=== PATIENT | female | born 1960 | race Caucasian/White ===

== ENCOUNTER → 2019-03-12 12:14 | Outpatient (CLI) | payer OTHER, SELFPAY ==
--- NOTE | ~2019-03-12 | MR_ITS ---
EXAMINATION: MR lumbar spine wo con DATE: 03/12/2019 13:03 INDICATION: Low back pain. TECHNIQUE: Magnetic resonance imaging (MRI) of the lumbar spine was performed without intravenous con trast. Sequences included sagittal T2-weighted FSE, sagittal T2-weighted FS FSE, sagittal T1-weighted FSE, and axial T2-weighted FSE. COMPARISON: Lumbar spine MRI 11/30/2009, chest 2 views 02/03/2018 FINDINGS: There is 14 degrees levoscoliosis of lumbar spine. S1 is a transitional segment. The verteb ral body heights are normal. There is mildly decreased disc height at L3-L4 and moderately decreased disc height at L5-S1. The distal spinal cord signal intensity is normal. The conus medullaris is at L 1-L2. The following disc levels are specifically discussed: L1-L2: There is a right central protrusion. There is moderate bilateral facet joint osteoarthritis. T here is mild right neural foraminal stenosis. There is mild central canal stenosis. L2-L3: The disc does not extend beyond the endplate margin. There is mild right and moderate left fac et joint osteoarthritis. There is no neural foraminal stenosis. There is no central canal stenosis. L3-L4: The disc is bulging. There is moderate bilateral facet joint osteoarthritis. There is mild lef t neural foraminal stenosis. There is mild central canal stenosis. L4-L5: The disc is bulging. There is severe bilateral facet joint osteoarthritis. There is mild bilat eral neural foraminal stenosis. There is mild central canal stenosis. L5-S1: The disc is bulging. There is severe bilateral facet joint osteoarthritis. There is moderate b ilateral neural foraminal stenosis. There is mild central canal stenosis. IMPRESSION: 1. Moderate lower lumbar spondylosis, stable from 11/30/2009. 2. Lumbar levoscoliosis. Reviewed, dictated and finalized at location A. TEACHER
== END ==
PROVIDERS: PCP Internal Medicine; Visit Provider Orthopaedic Surgery
DX: M47.896 Other spondylosis, lumbar region (principal)
CPT/HCPCS: 72148

== ENCOUNTER → 2019-04-06 12:07 | Outpatient (CLI) | payer OTHER, SELFPAY ==
--- NOTE | ~2019-04-06 | XR_ITS ---
EXAMINATION: HAND-SYMONE ARTHRITIS 3+VIEWS DATE: 04/06/2019 12:54 INDICATION: Osteoarthritis with bilateral hand and wrist pain TECHNIQUE: Posteroanterior, lateral, and oblique views of the left and of the right hands as well as a ballcatchers view of both hands were obtained. COMPARISON: None. FINDINGS: Alignment is normal at both hands. No fracture. Relatively symmetric mild polyarticular osteoarthriti s at both hands involving the triscaphe, first carpometacarpal, first metacarpophalangeal and multipl e interphalangeal joints in both hands. No cortical erosions to suggest an inflammatory arthritis. IMPRESSION: 1. Symmetric mild polyarticular osteoarthritis with typical distribution at both hands. Reviewed, dictated and finalized at location A. CULTURAL EXTENSION OFFICER IMPRESSION: 1. Symmetric mild polyarticular osteoarthritis with typical distribution at bot h hands.
--- NOTE | ~2019-04-06 | XR_ITS ---
EXAMINATION: XR sacroiliac joints min 3V DATE: 04/06/2019 12:54 INDICATION: Osteoarthritis with chronic joint pain. Dorsalgia. TECHNIQUE: AP and left and right oblique views of the sacroiliac joints were obtained. COMPARISON: None. FINDINGS: Transitional lumbosacral segment, sacralized on the left and lumbarized on the right. Bilateral sacro iliac osteoarthritis, mild on the left and moderate on the right. No erosions to suggest an inflammat ory sacroiliitis. Severe bilateral lower lumbar facet osteoarthritis. There is also mild bilateral hi p osteoarthritis. Sacral arches are intact. No fracture. IMPRESSION: 1. Mild left and moderate right sacroiliac osteoarthritis. 2. Severe bilateral lower lumbar facet osteoarthritis with transitional lumbosacral segment. Reviewed, dictated and finalized at location A. ING AND PACKING SUPERVISOR IMPRESSION: 1. Mild left and moderate right sacroiliac osteoarthritis. 2. Severe bilateral lower lumbar facet osteoarthritis with transitional lumbosa cral segment.
--- NOTE | ~2019-04-06 | XR_ITS ---
EXAMINATION: XR knee RT min 4V DATE: 04/06/2019 12:53 INDICATION: Unspecified osteoarthritis, unspecified site. TECHNIQUE: 4 views of right knee were obtained. COMPARISON: None. FINDINGS: Bone alignment is normal. No fracture. Joint spaces are well maintained. There is no knee j oint effusion. IMPRESSION: 1. Normal right knee. Reviewed, dictated and finalized at location A. ULTING SERVICES ASSOCIATE IMPRESSION: 1. Normal right knee.
--- NOTE | ~2019-04-06 | XR_ITS ---
EXAMINATION: XR knee LT min 4V DATE: 04/06/2019 12:54 INDICATION: Unspecified osteoarthritis, unspecified site. TECHNIQUE: 4 views of left knee were obtained. COMPARISON: None. FINDINGS: Bone alignment is normal. No fracture. There is mild tricompartmental osteoarthritis. No kn ee joint effusion. IMPRESSION: 1. Mild left knee osteoarthritis. Reviewed, dictated and finalized at location A. ORT DUTY MANAGER
--- NOTE | ~2019-04-06 | XR_ITS ---
EXAMINATION: XR foot LT standing 2V, XR foot RT standing 2V DATE: 04/06/2019 12:53 INDICATION: Osteoarthritis with chronic joint pain in the bilateral feet and ankles. TECHNIQUE: 1. Standing dorsoplantar and lateral views of the left foot were obtained. 2. Standing dorsoplantar and lateral views of the right foot were obtained. COMPARISON: None. FINDINGS: Mild bilateral pes planus. No fracture. Sclerotic bone lesion at the distal right tibial diaphysis wi th ring and arc-like calcific matrix consistent with an enchondroma. No evident endosteal scalloping or other aggressive features. Relatively symmetric minimal to mild polyarticular osteoarthritis at mu ltiple joints in the bilateral feet. No cortical erosions. Bilateral small plantar calcaneal and Achi lles calcaneal spurs. Multiple small dystrophic calcifications in the soft tissues along the anterior aspect of the distal lower legs. IMPRESSION: 1. Mild bilateral pes planus with relatively symmetric pattern of minimal to mild polyarticular osteo arthritis in both feet. 2. Bilateral small Achilles and plantar calcaneal spurs. 3. Likely benign enchondroma in the distal right tibial diaphysis. Reviewed, dictated and finalized at location A. SKIVER IMPRESSION: 1. Mild bilateral pes planus with relatively symmetric pattern of minimal to mi ld polyarticular osteoarthritis in both feet. 2. Bilateral small Achilles and plantar calcaneal spurs. 3. Likely benign enchondroma in the distal right tibial diaphysis.
== END ==
PROVIDERS: PCP Internal Medicine; Visit Provider Internal Medicine
DX: M19.90 Unspecified osteoarthritis, unspecified site (principal); M19.041 Primary osteoarthritis, right hand; M19.042 Primary osteoarthritis, left hand; M19.031 Primary osteoarthritis, right wrist; M19.032 Primary osteoarthritis, left wrist; M53.3 Sacrococcygeal disorders, not elsewhere classified; M77.31 Calcaneal spur, right foot; M77.32 Calcaneal spur, left foot; M17.12 Unilateral primary osteoarthritis, left knee
CPT/HCPCS: 72202; 73130; 73564; 73620

== ENCOUNTER → 2019-10-05 09:36 | Outpatient (CLI) | payer OTHER, SELFPAY ==
--- NOTE | ~2019-10-05 | XR_ITS ---
EXAMINATION: XR lumbar spine 6V w bending DATE: 10/05/2019 10:48 INDICATION: Intervertebral disc disorders with radiculopathy, lumbar spine. TECHNIQUE: 7 views of lumbar spine including flexion and extension views were obtained. COMPARISON: Lumbar spine MRI 03/12/2019 FINDINGS: There is 20 degrees levoscoliosis of thoracolumbar spine. The spine is hypomobile with flex ion and extension. S1 is a transitional segment. Vertebral body heights are normal. There is mildly d ecreased disc height at L3-L4 and L5-S1. There are endplate osteophytes at all levels. There is multi level facet joint osteoarthritis, severe in lower lumbar spine. Surgical clips in the right upper cesar drant are likely from cholecystectomy. IMPRESSION: 1. Mild lumbar spondylosis. 2. Thoracolumbar levoscoliosis. Reviewed, dictated and finalized at location B.
== END ==
PROVIDERS: PCP Internal Medicine; Visit Provider Internal Medicine
DX: M51.16 Intervertebral disc disorders with radiculopathy, lumbar region (principal); M47.896 Other spondylosis, lumbar region
CPT/HCPCS: 72114

== ENCOUNTER 2020-01-13 10:10 | Outpatient (CLI) | payer OTHER, SELFPAY ==
--- NOTE | ~2020-01-13 | NM_ITS ---
NM stress w perf spect multi Procedure: The patient was stressed using Modified Jaxon protocol. Prior to the end of exercise mCi Tc 99m IV administered. Rest imaging performed following administration of 26.19 mCi Tc 99m IV. Suad ges were reformatted into short axis, horizontal and vertical long axis sections for visual and quant itative analysis. Indication: Chest pain Comparison: None Findings: Computer assisted qualitative and quantitative analysis of the immediate and delayed images revealed a small reversible perfusion abnormality of the lateral wall, consistent with impaired Jj nary flow reserve. Normal left ventricular cavity size, wall motion and ejection fraction. Left basia tricular ejection fraction measures 71%. Impression: 1: Small reversible perfusion abnormality lateral wall of the left ventricle, compatible with impaire d coronary flow reserve. 2: Normal left ventricle ejection fraction measuring 71%. Reviewed, dictated and finalized at location B. ECTIONAL THERAPY TEACHER Impression: 1: Small reversible perfusion abnormality lateral wall of the left ventricle, c ompatible with impaired coronary flow reserve. 2: Normal left ventricle ejection fraction measuring 71%.
--- NOTE | 2020-01-13 11:29 | EST_ITS ---
Patient Info Name: Maddie Loepz Age: 59 years : 1960 Gender: Female Ht: 60 in Wt: 185 lbs BSA: 1.93 m2 Exam Date: 01/13/2020 11:44 AM Exam Location: [facility] Stress Patient Status: Outpatient Admit Date: 01/13/2020 Staff Ordering Physician: Devin Blanco DO Attending Provider: HILARIO RAZO Exercise Technologist: Ronnie Monroe RDCS, RT Exercise Physician: Hilario Razo DO Exam Type: CA stress test treadmill w NM Study Info Indications R07.89 - Other chest pain A nuclear stress test was performed. Summary 1. 1. Negative Jaxon exercise stress test for ischemic ST changes by ECG criteria. 2. 2. Poor functional capacity, achieving 4.7 METs of workload. 3. 3. Baseline hypertension with hypertensive response to exercise. 4. 4. Appropriate HR response to exercise. 5. 5. Appropriate HR recovery at 1 minute post exercise. 6. 6. Nuclear scan to follow and will be reported separately. Please correlate with it. 7. 7. Patient informed of the above results. Protocol: Jaxon Stress ECG Details Stage: REST Duration (min): 1 min : 30 sec Speed (mph): 0.0 Grade (%): 0 HR (bpm): 87 SBP (mmHg): 167 DBP (mmHg): 95 METS: --- Stage: REST Duration (min): 21 min : 41 sec Speed (mph): 0.0 Grade (%): 0 HR (bpm): 93 SBP (mmHg): 167 DBP (mmHg): 95 METS: --- Stage: STAGE 1 Duration (min): 1 min : 0 sec Speed (mph): 1.7 Grade (%): 10 HR (bpm): 123 SBP (mmHg): 167 DBP (mmHg): 95 METS: --- Stage: STAGE 1 Duration (min): 2 min : 0 sec Speed (mph): 1.7 Grade (%): 10 HR (bpm): 141 SBP (mmHg): 167 DBP (mmHg): 95 METS: --- Stage: STAGE 1 Duration (min): 3 min : 0 sec Speed (mph): 2.5 Grade (%): 12 HR (bpm): 151 SBP (mmHg): 210 DBP (mmHg): 97 METS: --- Stage: RECOVERY Duration (min): 1 min : 0 sec Speed (mph): 0.0 Grade (%): 0 HR (bpm): 133 SBP (mmHg): 210 DBP (mmHg): 97 METS: --- Stage: RECOVERY Duration (min): 2 min : 0 sec Speed (mph): 0.0 Grade (%): 0 HR (bpm): 123 SBP (mmHg): 210 DBP (mmHg): 97 METS: --- Stage: RECOVERY Duration (min): 3 min : 0 sec Speed (mph): 0.0 Grade (%): 0 HR (bpm): 111 SBP (mmHg): 210 DBP (mmHg): 97 METS: --- Stage: RECOVERY Duration (min): 4 min : 0 sec Speed (mph): 0.0 Grade (%): 0 HR (bpm): 103 SBP (mmHg): 260 DBP (mmHg): 85 METS: --- Stage: RECOVERY Duration (min): 4 min : 43 sec Speed (mph): 0.0 Grade (%): 0 HR (bpm): 106 SBP (mmHg): 207 DBP (mmHg): 87 METS: --- Rest HR: 93 bpm Peak HR: 151 bpm Rest Sys BP: 167 mmHg Peak Sys BP: 260 mmHg Max Pred HR: 160 bpm % Max Pred HR: 94 % Target HR: 136 bpm Max RPP: 39,260 bpm*mmHg Aly Score: -5 BP Response: Patient exhibited a hypertensive response with stress Termination Reason: Reached target heart rate or workload Cardiac Symptoms: Shortness of breath, Back pain radiating t
--- NOTE | 2020-01-20 11:44 | WPDHOLTEREM ---
Holter/Event Monitor Holter/Event Monitor Date of procedure: 01/20/20 Procedure Type: 24 hour holter rmonitor Indications: Chest pain Conclusion: 1. 24 hour holter monitor on 01/20/20. 2. Underlying rhythm is sinus rhythm. HR range 58-129 bpm; average HR 97 bpm. 3. There are 4 premature supraventricular complexes. No supraventricular tachycardia. 4. There are 120 premature ventricular complexes, 1 ventricular couplet and 1 ventricular triplet. No ventricular tachycardia. 5. No sinoatrial or atrioventricular blocks. No significant pauses greater than 2 seconds. 6. No symptoms available for correlation.
== END 2020-01-13 10:11 | disposition home or self-care (01) ==
PROVIDERS: PCP Internal Medicine; Visit Provider Internal Medicine
DX: R07.9 Chest pain, unspecified (principal); R07.89 Other chest pain
CPT/HCPCS: 78452; 93017; 93225; 93226; A9502

== ENCOUNTER → 2020-04-23 01:52 | Outpatient (CLI) | payer OTHER, SELFPAY ==
[2020-04-23 18:54] LABS: SARS-CoV-2 RNA PCR Negative
== END ==
PROVIDERS: PCP Internal Medicine; Visit Provider Internal Medicine Cardiovascular Disease
DX: Z01.812 Encounter for preprocedural laboratory examination (principal); Z20.822 Contact with and (suspected) exposure to COVID-19
CPT/HCPCS: C9803; U0003; U0005

== ENCOUNTER 2020-04-26 01:18 | Day surgery (SDC) | payer OTHER, SELFPAY ==
[2020-04-25 14:34] VITALS: BMI 37.8
[2020-04-26] VITALS (9 sets, daily range): BP systolic 135–168; BP diastolic 61–85; PULSE 68–86; RESP 11–18; TEMP 36.3–36.4; O2SAT 95–98
--- NOTE | 2020-04-26 07:30 | SUR.PREOP ---
Patient arrived to preop room with . Patient denies any chest pain. IV initiated, consent signed, groin prepped. Patient ready for procedure. Will continue to monitor.
[2020-04-26] MEDS: SODIUM CHLORIDE 0.9% IV 500 ML 100 ML IV CONT (08:18)
--- NOTE | 2020-04-26 09:13 | WPDMODSED ---
Moderate Sedation Note-Pt Data Patient Data Allergies Allergy/AdvReac Type Severity Reaction Status Date / Time Iodinated Contrast Media Allergy Mild rash Verified 04/14/20 09:53 Home Medications Medication Instructions Recorded Confirmed Type famotidine 10 mg tablet 10 mg PO DAILY 12/19/18 04/25/20 History lorazepam 0.5 mg tablet 0.5 mg PO DAILY PRN 12/19/18 04/25/20 History ibuprofen 600 mg tablet 600 mg PO TID 04/27/19 04/25/20 History naproxen 500 mg tablet 500 mg PO BID 04/27/19 04/25/20 History aspirin 81 mg tablet,delayed 81 mg PO DAILY 03/17/20 04/25/20 History release metformin 500 mg tablet 500 mg PO .COMPLEX #270 tablet 03/25/20 04/25/20 Rx lisinopril 40 mg tablet 20 mg PO DAILY #90 tablet 04/14/20 04/25/20 Rx metoprolol succinate 50 mg 50 mg PO DAILY #30 tablet 04/14/20 04/25/20 Rx tablet,extended release 24 hr pravastatin 10 mg tablet 10 mg PO DAILY #30 tablet 04/14/20 04/25/20 Rx Current Medications: Active Medications Sodium Chloride (Normal Saline Iv) 500 mls @ 100 mls/hr IV CONT .Q5H ERNESTINE Last Admin: 04/26/20 08:18 Dose: 100 mls/hr Documented by: Sedation/Anesthesia: No previous sedation/anesthesia problems (including family history). [facility] Past Medical History Medical History (Updated 04/14/20 @ 09:54 by Hilario Stoddard DO) Arthritis Bilateral hand pain Diabetes Elevated creatine kinase HTN (hypertension) Inflammatory arthritis Myalgia Plantar fasciitis of left foot Radiculopathy due to lumbar intervertebral disc disorder Vision loss Vitamin D deficiency Surgical History Surgical History History of hand surgery Family History Family History Mother Patient's mother is Father Patient's father is Sibling Heart disease Other Arthritis Cancer Hypertension Social History Social History Smoking status: Former smoker Tobacco type: cigarettes Second hand tobacco smoke exposure: No Smoking end date: 03/11/20 Alcohol intake: never Substance use: never Substance use type: does not use Living arrangements: with family Gender identity (if verbalized by the patient): Female Spiritual care concerns: No Mod Sed Physical Exam Physical Exam Pre Procedural Exam: Normal: Airway Hours since solid foods: 10 Hours since liquid intake: 10 Internal Medicine - PN: Obj Da Vital Signs Vital Signs: Vital Signs - 24 hr 04/26/20 07:58 Temperature 36.3 C L Pulse Rate 82 Respiratory Rate 11 L Blood Pressure 168/78 H Pulse Oximetry 97 Meds/Results Medications: Active Medications Generic Name Dose Route Start Last Admin Trade Name Freq PRN Reason Stop Dose Admin Sodium Chloride 500 mls @ 100 mls/hr 04/26/20 07:15 04/26/20 08:18 Normal Saline Iv IV CONT 100 mls/hr .Q5H ERNESTINE Administration ASA Classification/Sedation ASA Classification/Sedation Risks: Risks, benefits and alternatives explained and patient/family accepted plan for sedation. Patient re-evaluated immediately prior to sedation.
--- NOTE | 2020-04-26 09:21 | WPDHPUPDATE1 ---
History and Physical Update Update Date/Time: 04/26/20 09:21 History and Physical has been reviewed, including an updated exam of the patient. There are NO changes in the patient's condition. Risks, benefits, and alternatives have been discussed and questions answered. Patient agrees to proceed with procedure.
--- NOTE | 2020-04-26 10:17 | WPDCARDPROC ---
Cardiac Cath Procedure Note Date of procedure:: 04/26/20 Performing physician:: Graham Drew MD Procedure Procedure note:: LEFT HEART CATHETERIZATION AND CORONARY ANGIOGRAM REPORT DATE OF PROCEDURE:04/26/2020 INDICATION FOR PROCEDURE: chest pressure, shortness of breath, coronary risk factors, abnormal coronary CT angiogram BRIEF CLINICAL HISTORY: 60-year-old female with hypertension, diabetes mellitus type 2, family history of CAD, obesity. Patient was referred by for coronary angiogram in the setting of chest pressure, shortness of breath, and abnormal coronary CT angiogram. Patient had coronary CT angiogram performed on 04/08/20 at [facility] which reportedly showed moderate severe multifocal three-vessel CAD secondary to calcified atherosclerotic disease; calcium score 2987 ; normal LVEF. Benefits and risks of the procedure were discussed with the patient in depth, and informed consent was obtained prior to the procedure. Risks of the procedure include but are not limited to vascular complications including groin hematoma, retroperitoneal bleed, vessel perforation; periprocedural CO, cardiac arrhythmias, stroke, contrast induced nephropathy, and . After discussing all the benefits, risks and alternatives, patient was willing to proceed with the procedure. PROCEDURES PERFORMED: 1. Left heart catheterization- Selective left and right coronary angiogram; left ventriculogram and hemodynamic assessment 2. Selective right common femoral angiogram and deployment of Angio-Seal hemostatic device 3. Moderate sedation-CPT code 95654 MODERATE SEDATION: Midazolam 2 mg; fentanyl 50 mcg; Start time 0926 , Stop time 1010 ; Total hhxg-ur-[id number] time 44 minutes; Jennifer Monk RN was trained observer for moderate sedation. ACCESS SITE: Right common femoral artery PROCEDURE NOTE: After obtaining informed consent, patient was brought to catheterization lab and prepped and draped in a usual sterile manner. After local anesthesia with lidocaine, right common femoral artery access was taken with micropuncture needle followed by insertion of a 6 Malawian sheath. Selective left and right coronary angiogram was performed using 5 Malawian JL4 and JR4 catheters respectively. Orthogonal views were taken. Next, a 5 [place]ian pigtail catheter was advanced in the LV cavity and was flushed with normal saline. LV pressure measurement was performed. After this, left ventriculogram was performed. The catheter was flushed again, and gradient across the aortic valve was measured on the pullback of the catheter. After performing iFR as described below, selective right common femoral angiogram was performed followed by successful deployment of Angio-Seal vascular closure device. Patient tolerated procedure well without any immediate procedure related complications. FINDINGS: LEFT MAIN CORONARY: the left main coronary is a medium to large caliber, long vessel, no significant focal stenosis seen. The vessel bifurcates into LAD and left circumflex branches. LEFT ANTERIOR DESCENDING ARTERY: The LAD is a medium to large caliber vessel in the proximal segment, tapers distally and reaches the LV apex. There is diffuse calcification, predominantly in the proximal and mid segment. There is mild 20-40% diffuse stenosis in the proximal and mid segment. The diagonal branch is a small-caliber vessel with moderate stenosis at the ostium. LEFT CIRCUMFLEX ARTERY: The left circumflex artery is a medium caliber vessel with diffuse calcification. It gives rise to small-sized OM 1 branch and medium-sized OM2 branch . There is eccentric, about 30-50% stenosis in the mid segment. RIGHT CORONARY ARTERY: The right coronary artery is a large size, dominant vessel with diffuse calcific disease. There is mild eccentric about 30% stenosis in the proximal-mid segment. Calcific, sequential, eccentric about 50-60% stenosis is seen in the upper part of the distal segment.
--- NOTE | 2020-04-26 14:23 | SUR.PHASEII ---
REVIEWED ALL DISCHARGE INSTRUCTIONS W/ PT. QUESTIONS ANSWERED. VOICED UNDERSTANDING OF ALL. DISCHARGED HOME, OUT VIA WC TO 'S WAITING CAR W/ ALL PERSONAL BELONGINGS AND DISCHARGE PACKET. VOICES NO C/O. NO DISTRESS NOTED.
== END 2020-04-26 14:23 | disposition home or self-care (01) ==
PROVIDERS: PCP Internal Medicine; Visit Provider Internal Medicine Cardiovascular Disease
PROC: 4A023N7 Measurement of Cardiac Sampling and Pressure, Left Heart, Percutaneous Approach (ICD-10-PCS; CPT 93452; principal; 2020-04-26 08:45)
PROC: 4A033BC Measurement of Arterial Pressure, Coronary, Percutaneous Approach (ICD-10-PCS; CPT 93571; 2020-04-26 08:45)
DX: I25.10 Atherosclerotic heart disease of native coronary artery without angina pectoris (principal); R93.1 Abnormal findings on diagnostic imaging of heart and coronary circulation; R07.89 Other chest pain; R06.02 Shortness of breath; I10 Essential (primary) hypertension; E11.9 Type 2 diabetes mellitus without complications; Z82.49 Family history of ischemic heart disease and other diseases of the circulatory system; E66.9 Obesity, unspecified; Z68.37 Body mass index [BMI] 37.0-37.9, adult; Z79.84 Long term (current) use of oral hypoglycemic drugs; Z87.891 Personal history of nicotine dependence
CPT/HCPCS: 93458; 93571; C1760; C1769; C1887; C1894; C9803; G0269; J0461; J0583; J1644; J2250; J3010; J7040; U0003; U0005

== ENCOUNTER 2020-05-09 08:32 | Outpatient (CLI) | payer OTHER, SELFPAY ==
--- NOTE | 2020-05-09 08:50 | ECHO_ITS ---
Patient Info Name: Maddie Lopez Age: 60 years : 1960 Gender: Female Ht: 60 in Wt: 195 lbs BSA: 1.98 m2 HR: 83 bpm BP: 159 / 93 mmHg Technical Quality: Good Exam Date: 05/09/2020 8:58 AM Exam Location: [facility] Patient Status: Outpatient Admit Date: 05/09/2020 Staff Ordering Physician: Hilario Stoddard DO Executive Chef: Cassy De Los Santos RDCS Attending Provider: Hilario Stoddard DO Referring Physician: Richi ISAAC; Exam Type: CA echo doppler color flow Study Info Indications - ATHEROSCLEROTIC HEART DISEASE Complete two-dimensional, color flow and Doppler transthoracic echocardiogram is performed. Summary 1. Complete two-dimensional, color flow and Doppler transthoracic echocardiogram is performed. 2. Left ventricular chamber dimension is normal. 3. Ventricular septum is sigmoid shaped. No LVOT obstruction. 4. Left ventricular systolic function is normal, estimated at 60-65%. 5. The left ventricular diastolic function is grade I diastolic dysfunction. 6. E/e' 13 is mildly elevated. 7. Left atrial chamber dimension is mildly enlarged. 8. There is mild aortic valve sclerosis. 9. The mitral valve has moderately calcified annulus. 10. No pulmonary hypertension, estimated pulmonary arterial systolic pressure is 29 mmHg. 11. There is mild pulmonic regurgitation. Left Ventricle Ventricular septum is sigmoid shaped. No LVOT obstruction. E/e' 13 is mildly elevated. Left ventricular chamber dimension is normal. Left ventricular systolic function is normal, estimated at 60-65%. The left ventricular diastolic function is grade I diastolic dysfunction. Right Ventricle Right ventricular chamber dimension is normal. Right ventricular systolic function is normal. Left Atria Left atrial chamber dimension is mildly enlarged. Right Atria Right atrial chamber dimension is normal. Aortic Valve The aortic valve is trileaflet. There is mild aortic valve sclerosis. There is no aortic valve stenosis. There is no aortic valve regurgitation. Pulmonic Valve There is mild pulmonic regurgitation. Mitral Valve The mitral valve has moderately calcified annulus. There is no mitral valve stenosis. There is no mitral valve regurgitation. Tricuspid Valve There is no tricuspid valve regurgitation. No pulmonary hypertension, estimated pulmonary arterial systolic pressure is 29 mmHg. Pericardium/Pleural There is no pericardial effusion. Inferior Vena Cava Normal inferior vena cava with >50% collapse upon inspiration consistent with normal right atrial pressure, 5 mmHg. Aorta The aortic root size at the sinus of Valsalva is normal. Left Ventricular Outflow Tract Name Value Normal LVOT 2D LVOT Diameter 2.0 cm LVOT Doppler LVOT Peak Gradient 3 mmHg LVOT Mean Gradient 2 mmHg LVOT VTI 21 cm LVOT VTI/AV VTI Ratio 0.8 LVOT Stroke Volume 65 ml LVOT CO 12.8 l/min LVOT CI 6.5
== END 2020-05-09 08:33 | disposition home or self-care (01) ==
PROVIDERS: PCP Internal Medicine; Visit Provider Internal Medicine Cardiovascular Disease
DX: I25.10 Atherosclerotic heart disease of native coronary artery without angina pectoris (principal); I08.3 Combined rheumatic disorders of mitral, aortic and tricuspid valves
CPT/HCPCS: 93306

== ENCOUNTER 2022-02-22 11:16 | Emergency (ER) | payer OTHER, SELFPAY ==
--- NOTE | ~2022-02-22 | XR_ITS ---
EXAMINATION: XR chest 2V DATE: 02/22/2022 11:44 INDICATION: Nonproductive cough TECHNIQUE: PA and lateral views of the chest are obtained. COMPARISON: 02/03/2018 FINDINGS: There are airspace opacities of the mid and lower lung zones. No pleural effusion or pneumo thorax. The cardiomediastinal silhouette is normal. There is moderate thoracic spondylosis. IMPRESSION: 1. Airspace opacities of the mid and lower lung zones, consistent with atelectasis versus pneumonia. Reviewed, dictated and finalized at location L. N MAKER IMPRESSION: 1. Airspace opacities of the mid and lower lung zones, consistent with atelecta sis versus pneumonia.
--- NOTE | 2022-02-22 11:17 | ED.URI ---
HPI - URI/Sore Throat General Chief Complaint: Upper Respiratory Infection Stated Complaint: Headache,Cough,Shortness of Breath Time Seen by Provider: 02/22/22 11:17 Source: patient Mode of arrival: ambulatory Limitations: no limitations History of Present Illness HPI Narrative: Maddie is a 62-year-old female patient presenting to the clinic today with complaints of headache, nonproductive cough, sweats, chills, and shortness of breath x4 days. She reports she took at home COVID test 2 days ago and was negative. She denies any known exposure to anybody with COVID, flu, or strep. Is over a 40 year 1/4 pack smoker. She denies any history of asthma or COPD. She rates her shortness of breath an 8/10 currently. MD elicited complaint: sore throat and nasal congestion Related Data Home Medications Medication Instructions Recorded Confirmed aspirin 81 mg tablet,delayed 81 mg PO DAILY 07/21/21 02/22/22 release (Adult Low Dose Aspirin) biotin 1,000 mcg chewable tablet 1,000 mcg PO DAILY 07/21/21 02/22/22 cholecalciferol (vitamin D3) 25 25 mcg PO DAILY 07/21/21 02/22/22 mcg (1,000 unit) capsule omega 1-gxo-yqz-fish oil 1,000 mg 1 cap PO DAILY 07/21/21 02/22/22 (120 mg-180 mg) capsule (Fish Oil) omeprazole 20 mg capsule,delayed 20 mg PO DAILY 10/18/21 02/22/22 release Allergies Allergy/AdvReac Type Severity Reaction Status Date / Time Iodinated Contrast Media Allergy Mild rash Verified 02/22/22 11:32 Review of Systems Review of Systems: Pertinent positives per HPI. Patient denies any fever, chills, rash, visual changes, dizziness, sore throat, chest pain, palpitations, nausea, vomiting, diarrhea, constipation, abdominal pain, or any urinary issues. [facility] Past Medical History Medical History Arthritis Bilateral hand pain Diabetes Elevated creatine kinase HTN (hypertension) Inflammatory arthritis Myalgia Plantar fasciitis of left foot Radiculopathy due to lumbar intervertebral disc disorder Vision loss Vitamin D deficiency Surgical History Surgical History History of hand surgery Family History Family History Mother Patient's mother is Father Patient's father is Sibling Heart disease Other Arthritis Cancer Hypertension Social History Social History Smoking packs per day: 0.25 Smoking cigarettes per day: 5.0 Years smoked: 42 Smoking pack-years: 10.50 Smoking status: Current every day smoker Tobacco type: cigarettes Second hand tobacco smoke exposure: No Alcohol intake: never Substance use: never Substance use type: does not use Gender identity (if verbalized by the patient): Female Spiritual care concerns: No Comments At the time of my signature, I reviewed and agree with the nursing past medical, surgical, social, and family history. There is no relevant family history pertinent to the patient complaint. Exam Narrative: General: Well-developed, obese, in no apparent distress Head: Normocephalic, atraumatic Eyes: Pupils equally round and reactive to light bilaterally, EOM intact, sclera and conjunctive clear, no discharge, lids normal Ears: TMs intact and clear, ear canals clear, no drainage, grossly hearing normal. Nose: Nares patent, clear nasal discharge, no inflammation, no sinus tenderness. Mouth: Oral pharynx without lesions or masses, good dentition, MMM. Oropharynx red, postnasal drip Neck: Supple, trachea midline, no enlargement of anterior or posterior cervical nodes, no thyroid masses or goiter palpable. Cardio: Regular rate and rhythm, s1 and s2 normal, no murmur appreciated. Resp: Lungs sounds diminished, no rhonchi, rales, wheezing or rubs Course Course Bria
[2022-02-22 11:28] VITALS: BP 129/68; PULSE 80; RESP 18; TEMP 36.9; O2SAT 96
[2022-02-22] MEDS: ALBUTEROL SULFATE NEB 2.5 MG/3 ML INH INHALATION (11:47)
[2022-02-22] MEDS: IPRATROPIUM BR 0.02% INH SOLN 0.5 MG/2.5 ML VIAL INHALATION (11:48)
[2022-02-22 11:59] VITALS: O2SAT 96
[2022-02-22 12:24] VITALS: PULSE 90; O2SAT 93
== END 2022-02-22 12:12 | disposition home or self-care (01) ==
PROVIDERS: Emergency Provider Nurse Practitioner Family; PCP Internal Medicine
DX: J10.00 Influenza due to other identified influenza virus with unspecified type of pneumonia (principal); Z20.822 Contact with and (suspected) exposure to COVID-19; F17.210 Nicotine dependence, cigarettes, uncomplicated; E11.9 Type 2 diabetes mellitus without complications; I10 Essential (primary) hypertension; M13.80 Other specified arthritis, unspecified site; E55.9 Vitamin D deficiency, unspecified
CPT/HCPCS: 71046; 87426; 87804; 94640; 99213; C9803; G0463

== ENCOUNTER 2022-06-11 09:53 | Outpatient (CLI) | payer OTHER, SELFPAY ==
--- NOTE | 2022-06-11 10:00 | ECG_ITS ---
Measurements Intervals [place] Rate: 85 P: 31 PA: 148 QRS: -1 QRSD: 108 T: 94 QT: 350 QTc: 417 Interpretive Statements SINUS RHYTHM CONSIDER INFERIOR INFARCT, AGE INDETERMINATE BORDERLINE ST-T WAVE ABNORMALITY- HIGH LATERAL LEADS BASELINE ARTIFACT- I, II, III, AVF, V1 ABNORMAL ECG NO PREVIOUS ECG AVAILABLE FOR COMPARISON Electronically Signed On 06-11-2022 10:33:24 CDT by iHlario Stoddard D.O.
== END 2022-06-11 09:54 | disposition home or self-care (01) ==
PROVIDERS: PCP Internal Medicine; Visit Provider Orthopaedic Surgery
DX: E78.5 Hyperlipidemia, unspecified (principal); Z01.818 Encounter for other preprocedural examination; R94.31 Abnormal electrocardiogram [ECG] [EKG]
CPT/HCPCS: 93005

== ENCOUNTER 2022-06-14 01:36 | Day surgery (SDC) | payer OTHER, SELFPAY ==
[2022-06-06 15:08] VITALS: BMI 33.2
--- NOTE | 2022-06-06 15:23 | PC.NURSE ---
Report to the Outpatient Waiting Room, entrance under the green pavilion located off [facility], at time 9:30 on date 06/14/22. Planned Procedure Time: 11:30. Time changes happen often and if your time is changed the preop area will call you the afternoon before. - You and your visitor will be asked to self-screen and do not enter if you have any COVID symptoms. - A mask is optional within the hospital at this time. Patients may have clear liquids (water, carbonated beverages, clear teas, apple juice) until 3 hours prior to surgery (8:30) with a maximum of 20 ounces. - No food from midnight until time of surgery Take the following medications with a SIP of water the morning of surgery: METOPROLOL, INHALER IF NEEDED DO NOT STOP ANY OF YOUR OTHER PRESCRIPTION MEDICATIONS PRIOR TO SURGERY?EXCEPT THE FOLLOWING Medications to discontinue per physician: VITAMINS/SUPPLEMENTS Date to take last dose: 06/10/22 Please no make-up, nail cape verdean, hairspray, perfume, deodorant, or body powder the day of surgery. No jewelry (including any body piercings) or valuables the day of surgery, leave them at home. Please take a shower or bath the night before, or the morning of, surgery with an antibacterial soap. Wear comfortable, loose fitting clothing. - Jewelry must be removed prior to entering the operating room. Rings and piercings that are not removed may be cut off. - The hospital will not accept responsibility for valuables. - Please leave all valuables, including medications, at home the day of surgery. If you are going home after surgery, a licensed city bus driver must drive you home. - NO public transportation without another adult if you receive anesthesia. - We recommend that an adult stay with you for 24 hours following discharge. - We also recommend that you do not drive, make important decision, drink alcoholic beverages, or take any drugs that were not prescribed by your health care provider for at least 24 hours after your discharge time. Follow any additional instructions given to you from your surgeon. If you or anyone in your household have experienced Covid symptoms in the past week, please notify your surgeon or the nurse liaison at the phone number below for possible testing. Telephone instructions given to PT - DAVE MACK and asked if any additional questions and then verbalized understanding. Patient advised to call surgeon office or pre surgery nurse liaison [phone] if any additional questions.
[2022-06-14] VITALS (9 sets, daily range): BP systolic 104–151; BP diastolic 57–66; PULSE 68–87; RESP 14–18; TEMP 36.1; O2SAT 92–100
--- NOTE | ~2022-06-14 | XR_ITS ---
EXAMINATION: XR surgery orthopedic DATE: 06/14/2022 09:57 INDICATION: Left fourth toe corn removal TECHNIQUE: Single fluoroscopic image of the left forefoot was obtained during procedure performed by Dr. Mckee. Radiologist was not present for the imaging or procedure. The amount of fluoroscopy time used during this procedure was 0.1 minutes. COMPARISON: None. FINDINGS: Metallic probe projects over the middle phalanx of the right fourth toe. Bone alignment is normal. No fractures. IMPRESSION: 1. Fluoroscopy utilized during orthopedic procedure with metallic probe marking the fourth toe middle phalanx. See procedure note for further detail. Reviewed, dictated and finalized at location L.
--- NOTE | 2022-06-14 07:11 | WPDHPUPDATE1 ---
History and Physical Update Update Date/Time: 06/14/22 07:11 History and Physical has been reviewed, including an updated exam of the patient. There are NO changes in the patient's condition. Risks, benefits, and alternatives have been discussed and questions answered. Patient agrees to proceed with procedure.
--- NOTE | 2022-06-14 09:05 | WPDANESEPPF ---
Anes - Initial Pre Proc Eval Procedure: Operation Date: 06/14/22 10:00 Proposed Procedures p Removal of Flint Left Fourth Toe - Tirso Mckee MD Date/Time: 06/14/22 09:05 Surgeon: Tirso Mckee MD Pre Op Diagnosis: left 4th toe corn Patient Data Age: 62 Gender: F Height: 1.52 m Weight: 77.11 kg Allergies Allergy/AdvReac Type Severity Reaction Status Date / Time Iodinated Contrast Media Allergy Mild rash Verified 06/06/22 15:08 Home Medications Medication Instructions Recorded Confirmed Type aspirin 81 mg tablet,delayed 81 mg PO DAILY 07/21/21 06/06/22 History release (Adult Low Dose Aspirin) biotin 1,000 mcg chewable tablet 1,000 mcg PO DAILY 07/21/21 06/06/22 History cholecalciferol (vitamin D3) 25 25 mcg PO DAILY 07/21/21 06/06/22 History mcg (1,000 unit) capsule omega 7-rci-ikg-fish oil 1,000 mg 1 cap PO DAILY 07/21/21 06/06/22 History (120 mg-180 mg) capsule (Fish Oil) lisinopril 40 mg tablet 40 mg PO DAILY #90 tabs 10/02/21 06/06/22 Rx omeprazole 20 mg capsule,delayed 20 mg PO DAILY 10/18/21 06/06/22 History release albuterol sulfate 90 mcg/actuation 2 puff inhalation Q4-6H PRN 02/22/22 06/06/22 Rx aerosol inhaler shortness of breath or wheezing 30 days #8.5 grams metoprolol succinate 50 mg See Rx Instructions .Route 03/26/22 06/06/22 Rx tablet,extended release 24 hr .COMPLEX #30 tabs pravastatin 10 mg tablet See Rx Instructions .Route 03/26/22 06/06/22 Rx .COMPLEX #30 tabs Patient hx anesthesia problems: none Family hx anesthesia problems: none Results Review: All pre-operative results and documents have been reviewed as part of the pre-operative evaluation. [facility] Past Medical History Medical History Arthritis Bilateral hand pain [place] of toe Diabetes Elevated creatine kinase HTN (hypertension) Inflammatory arthritis Myalgia Pes planus of both feet Plantar fasciitis of left foot Radiculopathy due to lumbar intervertebral disc disorder Vision loss Vitamin D deficiency Surgical History Surgical History History of hand surgery Family History Family History Mother Patient's mother is Father Patient's father is Sibling Heart disease Other Arthritis Cancer Hypertension Social History Social History Smoking packs per day: 1 Smoking cigarettes per day: 20.0 Years smoked: 40 Smoking pack-years: 40.00 Smoking status: Current some day smoker Tobacco type: cigarettes Second hand tobacco smoke exposure: No Smoking end date: 02/11/22 Alcohol intake: never Substance use: never Substance use type: does not use Lack of Transportation: No Lack of Food: Never True Current Housing: I Have Housing Concerned About Future Housing: No Difficulty Paying Gas/Electric Bills: No Difficulty Paying for Meds: No Currently Unemployed: No Education: High School Diploma/GED Difficulty w/ Childcare or Family Care: No Living arrangements: with family Gender identity (if verbalized by the patient): Female Spiritual care concerns: No Anes - Eval Final PreProcedure Day of Procedure 06/14/22 09:05 Patient weight: obese Heart: regular rate and rhythm Lungs: decreased breath sounds Airway: Mallampati scale class II Neurological: alert and oriented Last oral intake: >/= 8 hours ASA classification: III Emergent: no Anesthetic plan: proceed Anesthesia type and monitoring: general LMA and standard monitoring Results Review: All pre-operative results and documents have been reviewed as part of the pre-operative evaluation. Informed Consent: The patient's anesthetic plan and its attendant risks and benefits were discussed with the patient/family
[2022-06-14] MEDS: KETOROLAC 15 MG/ML VIAL (*BKC) IV PUSH (09:15)
[2022-06-14] MEDS: LACTATED RINGERS 1,000 ML 30 ML IV CONT (09:15)
[2022-06-14] MEDS: ACETAMINOPHEN 500 MG TABLET 1000 MG PO (09:15)
[2022-06-14] MEDS: ceFAZolin 2 GM/D5W 50 ML 2 GM/50 ML BAG IVPB (09:26)
[2022-06-14] MEDS: BUPivacaine HCL 0.5% PF 30 ML VIAL 20 ML INFILTRATE (09:55)
--- NOTE | 2022-06-14 10:18 | P.OP_ITS ---
Procedure Note - Detailed Date of Procedure 06/14/22 Pre-op Diagnosis left 4th toe Phalangeal exostosis Post-op Diagnosis Same Procedure Performed excision of exostosis left 4th toe middle and proximal phalanx. Surgeon Tirso Mckee MD Clinical Systems Analyst 1St assistant superintendent Anesthesia General Indications 62-year-old woman with lateral exostosis of the 4th toe middle and proximal phalanx creating a hard callus and pre ulcerative skin condition over the lateral 4th toe. Difficulty with shoe wear secondary to pressure. Presents for operative treatment. Description of Procedure Patient identified in the preoperative holding. Informed consent given. Operative extremity marked. Patient received intravenous antibiotics. Patient brought to the operating room where underwent general anesthetic by anesthesia team. Positioned supine on operating room table. Time-out performed confirming the patient, site of the surgery and the plan. Left foot prepped draped usual sterile surgical fashion using a ChloraPrep skin solution. Foot exsanguinated and calf tourniquet inflated to 225 mmHg. Local anesthetic with 0.5% Marcaine. Dorsal longitudinal incision made over the 4th toe dorsal to the callus. Dissection carried down and the extensor tendon retracted medially to allow exposure of the lateral aspect of the middle and proximal phalanx. Capsulotomy performed in line with the skin incision. Sagittal saw then used to resect the lateral condyle and exostosis from the middle and proximal phalanx. Image intensification confirmed resection level. Bone and smoothed with a rongeur. Wound irrigated. Subcutaneous tissue closed with 3-0 Monocryl interrupted suture and skin repaired with 4-0 nylon interrupted suture. Tourniquet released in good capillary refill noted in the toe. Sterile dressing applied. The patient was then woken from anesthesia, extubated and taken to the recovery room in stable condition. All sponge, needle, instrument counts were correct at the end of the case. Estimated Blood Loss 5 Tourniquet Time 20 Drains No Packing No Pathology None sent Complications None Condition Stable Disposition PACU [facility] Billing Surgery - Charge Forward: Surgery Billing ([id number])
[2022-06-14 10:27] LABS: Glucose Point of Care 156 mg/dl (65-105)
[2022-06-14 12:26] LABS: Glucose Point of Care 185 mg/dl (65-105)
== END 2022-06-14 11:57 | disposition home or self-care (01) ==
PROVIDERS: PCP Internal Medicine; Visit Provider Orthopaedic Surgery
PROC: (CPT 28108; principal; 2022-06-14 10:00)
DX: M25.775 Osteophyte, left foot (principal); L84 Corns and callosities; I10 Essential (primary) hypertension; E55.9 Vitamin D deficiency, unspecified; E11.9 Type 2 diabetes mellitus without complications; Z79.82 Long term (current) use of aspirin; Z79.51 Long term (current) use of inhaled steroids; F17.210 Nicotine dependence, cigarettes, uncomplicated; E66.9 Obesity, unspecified; Z68.33 Body mass index [BMI] 33.0-33.9, adult
CPT/HCPCS: 28108; 82948; 93005; 99199; A9270; J0690; J1100; J1885; J2250; J2370; J2405; J2704; J3010; J7120

== ENCOUNTER 2022-11-07 10:13 | Outpatient (CLI) | payer OTHER, SELFPAY ==
--- NOTE | ~2022-11-07 | CT_ITS ---
EXAMINATION: CT lung screening DATE: 11/07/2022 10:38 INDICATION: Smoker. TECHNIQUE: Computed tomography (CT) of the chest was performed without intravenous contrast. The dose -length product was 118.19 mGy-cm. Automated exposure control and iterative reconstruction technique were employed. COMPARISON: Chest x-ray dated 02/22/2022 FINDINGS: No thoracic lymphadenopathy. There is atherosclerosis of the aorta and coronary arteries. N o significant pleural or pericardial effusion. There are cholecystectomy clips. There is atelectasis/ scarring in the mid lungs bilaterally. Elevated right diaphragm. There are a few small scattered grou ndglass nodules measuring 3 mm or less in both lungs. There is dependent atelectasis. Moderate thorac ic spondylosis. Dextroscoliosis. IMPRESSION: 1. Lung-RADS category 2: Benign appearance or behavior. Continue annual screening with noncontrast lo w-dose chest CT in 12 months. Reviewed, dictated and finalized at location B. IMPRESSION: 1. Lung-RADS category 2: Benign appearance or behavior. Continue annual screeni ng with noncontrast low-dose chest CT in 12 months.
== END 2022-11-07 10:14 | disposition home or self-care (01) ==
PROVIDERS: PCP Internal Medicine; Visit Provider Internal Medicine
DX: Z12.2 Encounter for screening for malignant neoplasm of respiratory organs (principal); F17.210 Nicotine dependence, cigarettes, uncomplicated
CPT/HCPCS: 71271

== ENCOUNTER 2023-06-26 08:26 | Outpatient (CLI) | payer OTHER, SELFPAY ==
--- NOTE | ~2023-06-26 | NM_ITS ---
EXAMINATION: NM rico stress w perfusion DATE: 06/26/2023 10:41 INDICATION: Chest pain TECHNIQUE: Rest images were obtained following intravenous administration of 10.3 mCi Tc99m tetrofosm in (Myoview). The patient was infused intravenously with Lexiscan (Regadenoson). Then, 32.7 mCi Tc99m tetrofosmin (Myoview) was administered intravenously, and stress images were obtained. Data was sherlyn nstructed into short axis and horizontal and vertical long axis SPECT images. Gated SPECT images were also obtained. COMPARISON: None. FINDINGS: There is no definite reversible or fixed perfusion abnormality to suggest ischemia or infar ction. There is normal left ventricular chamber size, wall motion and ejection fraction. Left ventr icular ejection fraction measures 63%. IMPRESSION: 1. Normal myocardial perfusion at rest and during stress. 2. Left ventricular ejection fraction measuring 63%. Reviewed, dictated and finalized at location A.
--- NOTE | 2023-06-26 09:07 | EST_ITS ---
Patient Info Name: Maddie Lopez Age: 63 years : 1960 Gender: Female Ht: 60 in Wt: 125 lbs BSA: 1.56 m2 HR: 84 bpm BP: 139 / 70 mmHg Heart Rhythm: Sinus Rhythm Exam Date: 06/26/2023 9:33 AM Exam Location: Echo Lab Patient Status: Outpatient Admit Date: 06/26/2023 Staff Ordering Physician: Hilario Stoddard DO Attending Provider: Hilario Stoddard DO Exercise Technologist: Tala Bowden CT Exercise Physician: Hilario Stoddard DO Exam Type: CA stress rico w NM Study Info Indications Z01.818 - Encounter for other preprocedural examination A regadenoson stress test was performed. Summary 1. 1. Negative lexiscan stress test for ischemic ST changes by ECG criteria. 2. 2. Stable hemodynamics throughout the test. 3. 3. Nuclear scan to follow and will be reported separately. Please correlate with it. 4. 4. Patient informed of the above results. Protocol: Lexiscan Stress ECG Details Stage: REST Duration (min): 0 min : 53 sec HR (bpm): 84 SBP (mmHg): 139 DBP (mmHg): 70 Stage: REST Duration (min): 1 min : 5 sec HR (bpm): 86 SBP (mmHg): 139 DBP (mmHg): 70 Stage: STAGE 1 Duration (min): 1 min : 0 sec HR (bpm): 101 SBP (mmHg): 134 DBP (mmHg): 67 Stage: RECOVERY Duration (min): 1 min : 0 sec HR (bpm): 100 SBP (mmHg): 134 DBP (mmHg): 67 Stage: RECOVERY Duration (min): 2 min : 0 sec HR (bpm): 106 SBP (mmHg): 134 DBP (mmHg): 67 Stage: RECOVERY Duration (min): 3 min : 0 sec HR (bpm): 99 SBP (mmHg): 114 DBP (mmHg): 58 Stage: RECOVERY Duration (min): 3 min : 17 sec HR (bpm): 101 SBP (mmHg): 114 DBP (mmHg): 58 Rest HR: 86 bpm Peak HR: 106 bpm Rest Sys BP: 139 mmHg Peak Sys BP: 134 mmHg Max Pred HR: 156 bpm % Max Pred HR: 68 % Target HR: 133 bpm Max RPP: 14,204 bpm*mmHg Termination Reason: Completed protocol Cardiac Symptoms: Shortness of breath Total Time: 1 min : 0 sec Rest Craig BP: 70 mmHg Peak Craig BP: 67 mmHg Total Dose: 0.4 mg Resting ECG Sinus rhythm. Stress ECG No ST changes. Arrhythmias None. Report Signatures
== END 2023-06-26 08:27 | disposition home or self-care (01) ==
PROVIDERS: PCP Internal Medicine; Visit Provider Internal Medicine Cardiovascular Disease
DX: R07.89 Other chest pain (principal); Z01.810 Encounter for preprocedural cardiovascular examination
CPT/HCPCS: 78452; 93017; A9502; J2785

== ENCOUNTER 2023-10-11 08:18 | Outpatient (CLI) | payer OTHER, SELFPAY ==
--- NOTE | ~2023-10-11 | XR_ITS ---
EXAMINATION: XR UGI w barium swallow DATE: 10/11/2023 09:36 INDICATION: Epigastric pain TECHNIQUE: The patient drank thick barium, gas-producing crystals, and thin barium. Fluoroscopic spot radiographs of the hypopharynx, esophagus, stomach and proximal small bowel were obtained. Fluorosco py exposure time was 2.7 minutes. A total of 869 fluoroscopic images were recorded. Total DAP was 11. 231 Gycm^2 COMPARISON: None. FINDINGS: The pharynx is symmetric and without evidence of mass lesion or mucosal irregularity. The esophagus i s normal without mass or stricture. Esophageal motility is normal. There is no hiatal hernia. There w as no gastroesophageal reflux with provocative maneuvers. Duodenal diverticulum arising from the thir d portions of the duodenum. The stomach and proximal small bowel are otherwise normal. IMPRESSION: 1. Duodenal diverticulum. Otherwise normal esophagram and upper GI study. Reviewed, dictated and finalized at location A.
--- NOTE | ~2023-10-11 | US_ITS ---
EXAMINATION: US abdomen limited DATE: 10/11/2023 09:18 INDICATION: Other specified abnormal findings of blood chemistry. Nausea and right upper quadrant abd ominal pain. TECHNIQUE: Multiple grayscale and Doppler ultrasound images of the abdomen were obtained. COMPARISON: None FINDINGS: The region of the pancreas is obscured by shadowing bowel gas. The proximal abdominal aorta and infer ior vena cava are also partially obscured but appear normal with abdominal aorta measuring approximat shavonne 2.1 cm in maximal diameter. Liver has normal echogenicity and contour, with a smooth surface. No liver lesion identified. Mild central intrahepatic biliary ductal dilation. Portal venous flow was se en in the hepatopetal, normal direction and has normal Doppler waveform. Status post cholecystectomy. Common bile duct measures 6 mm in maximal diameter which is within normal limits. IMPRESSION: 1. Mild central intrahepatic ductal or ductal dilation with normal caliber common bile duct. This cou ld be secondary to prior cholecystectomy. If there is clinical concern for biliary obstruction could consider MRCP for further evaluation.. Reviewed, dictated and finalized at location A. IMPRESSION: 1. Mild central intrahepatic ductal or ductal dilation with normal caliber comm on bile duct. This could be secondary to prior cholecystectomy. If there is cli nical concern for biliary obstruction could consider MRCP for further evaluatio michelle
== END 2023-10-11 08:19 | disposition home or self-care (01) ==
PROVIDERS: PCP Internal Medicine; Visit Provider Internal Medicine
DX: R10.13 Epigastric pain (principal); R79.89 Other specified abnormal findings of blood chemistry; K57.10 Diverticulosis of small intestine without perforation or abscess without bleeding
CPT/HCPCS: 74240; 76705

== ENCOUNTER 2023-11-11 17:40 | Emergency (ER) | payer OTHER, SELFPAY ==
--- NOTE | ~2023-11-11 | CT_ITS ---
CT of the Abdomen and Pelvis: Indication: Hepatobiliary obstruction Technique: 2.5 mm axial scans were obtained through the abdomen and pelvis following intravenous adm inistration of 100 cc of Omnipaque 350. Dose reduction technique was used on this scan by utilizing a utomated exposure control and iterative reconstruction technique. The dose-length product (DLP) was 2 83.52 mGy-cm. Findings: Scans through the lung bases demonstrate probable mild bibasilar chronic interstitial reddy ge and mild bronchiolectasis. There is a 2.6 x 2.1 cm somewhat ill-defined hypodense mass at the pancreatic head, highly suspicious for pancreatic adenocarcinoma. There is associated marked dilatation of the main pancreatic duct ups tream from the lesion. There is also marked intrahepatic and extrahepatic biliary dilatation. Cholecy stectomy clips present. There is abrupt cut off of the main pancreatic duct and common bile duct at t he level of the mass. The spleen and kidneys are within normal limits. Probable small bilateral adrenal nodules, stable sin ce 11/07/2022. There are atherosclerotic calcifications of the aorta. No lymphadenopathy. No bowel obstruction or bowel wall thickening. There is no evidence to suggest acute appendicitis. Images through the pelvis were performed. Urinary bladder unremarkable. No pelvic mass seen. No ascit es. Impression: 2.6 x 2.1 cm pancreatic head mass is highly suspicious for pancreatic carcinoma. There is associated obstruction of both the main pancreatic duct and distal common bile duct, with marked intrahepatic an d extrahepatic biliary dilatation and upstream main pancreatic ductal dilatation. Small bilateral adrenal nodules are stable since 11/07/2022. As these appear to predate the pancreatic lesion, they are likely benign. Reviewed, dictated and finalized at location M. Impression: 2.6 x 2.1 cm pancreatic head mass is highly suspicious for pancreatic carcinoma . There is associated obstruction of both the main pancreatic duct and distal c ommon bile duct, with marked intrahepatic and extrahepatic biliary dilatation a nd upstream main pancreatic ductal dilatation. Small bilateral adrenal nodules are stable since 11/07/2022. As these appear to predate the pancreatic lesion, they are likely benign.
[2023-11-11 18:12] VITALS: BP 131/76; PULSE 87; RESP 14; TEMP 36.7; O2SAT 98
--- NOTE | 2023-11-11 18:39 | ED.ABDPAIN ---
HPI - Abdominal Pain General Chief Complaint: Abdominal Pain <Kaylin Osborne PA-C - Last Filed: 11/13/23 10:28> Stated Complaint: blockage in liver? <Kaylin Osborne PA-C - Last Filed: 11/13/23 10:28> Time Seen by Provider: 11/11/23 18:39 <Kaylin Osborne PA-C - Last Filed: 11/13/23 10:28> Focused HPI: This is a 63 year old female that presents to the ER for abdominal pain. Ongoing over the last month. Reports walker colored stools with mucus. She has had itching and noted a yellow color to her skin. Saw GI today and was prompted to be seen in the ER due to jaundice. Reports some nausea and vomiting. Reports she has been feeling lightheaded and passed out several weeks ago. Denies fevers. GENERAL: Jaundice, well-nourished, and in no acute distress. HEAD: Normocephalic, atraumatic. CHEST: Clear to auscultation. ?No respiratory distress. HEART: Regular rate and rhythm.? NEURO: ?Alert and oriented x3. Patient screened in triage and initial orders placed.? ?Additional care and disposition to be based upon?diagnostic testing and treatment. <Kaylin Osborne PA-C - Last Filed: 11/13/23 10:28> Focused HPI: This is a 63 year old female that presents to the ER for abdominal pain. Ongoing over the last month. Reports walker colored stools with mucus. She has had itching and noted a yellow color to her skin. Saw GI today 's office and was prompted to be seen in the ER due to jaundice and hospital admission to figure out why she is having the symptoms. Reports some nausea and vomiting. Reports she has been feeling lightheaded and passed out several weeks ago. Denies fevers. GENERAL: Jaundice, well-nourished, and in no acute distress. HEAD: Normocephalic, atraumatic. CHEST: Clear to auscultation. ?No respiratory distress. HEART: Regular rate and rhythm.? NEURO: ?Alert and oriented x3. Patient screened in triage and initial orders placed.? ?Additional care and disposition to be based upon?diagnostic testing and treatment. Agree with triage assessment. Patient denies any history of alcohol abuse, any recent travel overseas, states that she has had her gallbladder removed in 2002. Denies any chest pain or shortness of breath, mild abdominal pain but states that her abdominal pain is controlled right now. Denies any nausea or vomiting, admits that her stools have been very light in color and that she has been having frequent stools. No additional symptoms or concerns at this time. <Hank Barboza MD - Last Filed: 11/12/23 07:21> Related Data Home Medications: Home Medications Medication Instructions Recorded Confirmed aspirin 81 mg tablet,delayed 81 mg PO DAILY 07/21/21 11/11/23 release (Adult Low Dose Aspirin) biotin 1,000 mcg chewable tablet 1,000 mcg PO DAILY 07/21/21 11/11/23 omega 5-krd-ipz-fish oil 1,000 mg 1 cap PO DAILY 07/21/21 11/11/23 (120 mg-180 mg) capsule (Fish Oil) cholecalciferol (vitamin D3) 25 5,000 unit PO DAILY 12/19/22 11/11/23 mcg (1,000 unit) capsule turmeric/curcumin BYPAUTH 12/19/22 11/11/23 <Kaylin Osborne PA-C - Last Filed: 11/13/23 10:28> Allergies/Adverse Reactions: Allergies Allergy/AdvReac Type Severity Reaction Status Date / Time No Known Allergies Allergy Verified 11/11/23 15:12 <Kaylin Osborne PA-C - Last Filed: 11/13/23 10:28> Review of Systems Review of Systems: All systems are reviewed and are negative unless stated otherwise in the HPI. <Hank Barboza MD - Last Filed: 11/12/23 07:21> PMFSH Past Medical History Medical History: Medical History Arthritis Bilateral hand pain BMI 31.0-31.9,adult [place] of toe Diabetes Elevated creatine kinase HTN (hypertension) Inflammatory arthritis Myalgia Pes planus of both feet Plantar fasciitis of left foot Radiculopathy due to lumbar intervertebral disc disorder Vision loss Vitamin D deficiency <Kaylin Osborne
--- NOTE | 2023-11-11 18:43 | ECG_ITS ---
Test Date: 2023-11-11 23:57:51 Measurements Intervals [place] Rate: 80 P: 29 TN: 141 QRS: 29 QRSD: 102 T: 62 QT: 373 QTc: 430 Interpretive Statements SINUS RHYTHM No previous ECG available for comparison Electronically Signed On 11-12-2023 10:07:33 CDT by Mauro Horton M.D.
[2023-11-11 23:55] VITALS: BP 141/73; PULSE 84; RESP 16; O2SAT 100
[2023-11-12] VITALS (23 sets, daily range): BP systolic 94–152; BP diastolic 50–76; PULSE 77–89; RESP 14–20; TEMP 36.4–36.6; O2SAT 94–100
[2023-11-12 00:13] LABS: Basophils Absolute Auto 0.1 K/mm3 (0.0-0.1); Basophils Percent Auto 0.9 % (0.2-1.2); Eosinophils Percent Auto 0.4 % (0-4.4); Hematocrit 36.8 % (37.0-47.0); Hemoglobin 12.5 g/dL (12.0-15.0); Immature Granulocyte Absolute 0.07 K/mm3 (0.00-0.031); Immature Granulocyte Percent A 0.8 % (0-0.5); Lymphocytes Absolute Auto 1.93 K/mm3 (0.9-3.2); Lymphocytes Percent Auto 21.7 % (18.3-44.2); Mean Corpuscular Hemoglobin 21.6 pg (26-34); Mean Corpuscular Volume 63.4 fl (80-100); Mean Platelet Volume 9.5 fl (7.4-10.4); Monocytes Absolute Auto 0.8 K/mm3 (0.1-0.6); Monocytes Percent Auto 9.1 % (2.6-8.5); Neutrophils Percent Auto 67.1 % (45.5-73.1); Platelet Count Result 365 k/mm3 (150-375); Red Cell Distribution Width 21.3 % (11.5-14.5); White Blood Count 8.9 K/mm3 (4.5-10.0)
[2023-11-12 00:24] LABS: INR 0.9; Prothrombin Time 12.8 Seconds (11.1-14.7)
[2023-11-12 00:25] LABS: Partial Thromboplastin Time 28.9 Seconds (22.3-36.8)
[2023-11-12 00:27] LABS: Alanine Aminotransferase 516 U/L (6-35); Albumin Level 3.7 g/dL (3.5-5.1); Alkaline Phosphatase 1258 U/L (38-126); Anion Gap 11 mmol/L (4-12); Aspartate Amino Transferase 648 U/L (14-36); Bilirubin,Total 7.6 mg/dL (0.2-1.3); Blood Urea Nitrogen 15 mg/dL (7-17); Calcium 8.8 mg/dL (8.4-10.2); Carbon Dioxide 23 mmol/L (22-30); Chloride 99 mmol/L (98-107); Estimated CRCL calculation 106 ml/min; Estimated Glomerular Filt Rate > 60; Glucose 112 mg/dL (65-110); Lipase 46 U/L (23-300); Potassium 3.8 mmol/L (3.4-5.0); Sodium 133 mmol/L (137-145)
[2023-11-12 01:21] LABS: Hepatitis B Surface Antigen Negative (Negative)
[2023-11-12 01:26] LABS: HAV RESULT Negative (Negative); Hepatitis B Core IgM Result Negative (Negative)
[2023-11-12 01:38] LABS: Hepatitis C Virus Antibody Negative (Negative)
[2023-11-12 02:07] LABS: Add Urine Microscopic? YES; Appearance Urine Clear (Clear); Bilirubin Urine Negative (Negative); Blood Urine Negative (Negative); Color Urine Dark Yellow (Yellow); Glucose Urine UA 3+ mg/dL (Negative); Ketones Urine 1+ mg/dL (Negative); Leukocyte Esterase Ur Negative LEU/UL (Negative); Nitrate Urine Negative (Negative); Protein Urine Negative (Negative); Specific Grav Ur > 1.045 (1.001-1.035); Urobilinogen Urine 0.2 mg/dL (<2.0)
[2023-11-12] MEDS: SODIUM CHLORIDE 0.9% IV 1,000 ML 999 ML IV CONT (02:40)
[2023-11-12 06:37] LABS: Glucose Point of Care 191 mg/dl (65-105)
[2023-11-12 07:05] LABS: Basophils Absolute Auto 0.1 K/mm3 (0.0-0.1); Basophils Percent Auto 0.8 % (0.2-1.2); Eosinophils Absolute Auto 0.1 K/mm3 (0-0.3); Eosinophils Percent Auto 0.6 % (0-4.4); Hematocrit 35.2 % (37.0-47.0); Hemoglobin 11.9 g/dL (12.0-15.0); Immature Granulocyte Absolute 0.06 K/mm3 (0.00-0.031); Immature Granulocyte Percent A 0.7 % (0-0.5); Lymphocytes Absolute Auto 2.08 K/mm3 (0.9-3.2); Mean Corpuscular HGB Conc 33.8 g/dl (32-36); Mean Corpuscular Hemoglobin 21.8 pg (26-34); Mean Corpuscular Volume 64.4 fl (80-100); Mean Platelet Volume 9.7 fl (7.4-10.4); Monocytes Absolute Auto 0.8 K/mm3 (0.1-0.6); Monocytes Percent Auto 8.9 % (2.6-8.5); Neutrophils Absolute Auto 5.6 K/mm3 (1.3-6.7); Platelet Count Result 365 k/mm3 (150-375); Red Blood Count 5.47 M/mm3 (4.2-5.4); Red Cell Distribution Width 21.3 % (11.5-14.5); White Blood Count 8.7 K/mm3 (4.5-10.0)
[2023-11-12] MEDS: INSULIN GLARGINE (*BKC) 100 UNITS/ML 10 UNITS SUB-Q ×2 (07:05→19:59)
[2023-11-12 07:16] LABS: Anion Gap 6 mmol/L (4-12); Blood Urea Nitrogen 13 mg/dL (7-17); Calcium 8.4 mg/dL (8.4-10.2); Carbon Dioxide 25 mmol/L (22-30); Chloride 101 mmol/L (98-107); Estimated CRCL calculation 106 ml/min; Estimated Glomerular Filt Rate > 60; Glucose 176 mg/dL (65-110); Sodium 132 mmol/L (137-145)
[2023-11-12 07:26] LABS: Anisocytosis 2+; Hypochromasia 2+; Platelet Estimate Adequate (Adequate); Schistocytes None Seen; Target Cells 2+
[2023-11-12] MEDS: LACTATED RINGERS 1,000 ML 150 ML IV CONT (08:01)
--- NOTE | 2023-11-12 08:29 | PC.NURSE ---
ordered pt breakfast tray.
--- NOTE | 2023-11-12 18:42 | PC.NURSE ---
[facility] transfer center called with room number. room 826 bed 1. accepting physician is Dr. Belle. attempted to call nurse to nurse report. she states that she was not aware she was getting and will call back when she has time. call back number given.
--- NOTE | 2023-11-12 19:29 | PC.NURSE ---
attempted to call nurse to nurse report again at phone number provided. at [phone]. no answer. attempted to call supervisor propellant charge loading number at [phone]. no answer.
--- NOTE | 2023-11-12 19:52 | PC.NURSE ---
report was called to JAMAAL Damian at [facility] at [phone].
[2023-11-12 20:12] LABS: Glucose Point of Care 283 mg/dl (65-105)
--- NOTE | 2023-11-12 20:20 | PC.NURSE ---
Gave report to [facility], patient ambulated to EMS stretcher, VSS, AxO4. All questions answered for EMS and Pt. Pt verbalized understanding of transfer.
== END 2023-11-12 20:20 | disposition short-term general hospital (02) ==
PROVIDERS: Physician Assistant; Emergency Provider Emergency Medicine; PCP Internal Medicine
DX: K86.89 Other specified diseases of pancreas (principal); R16.0 Hepatomegaly, not elsewhere classified; E80.6 Other disorders of bilirubin metabolism; R74.01 Elevation of levels of liver transaminase levels; I10 Essential (primary) hypertension; E11.9 Type 2 diabetes mellitus without complications; E55.9 Vitamin D deficiency, unspecified; M19.90 Unspecified osteoarthritis, unspecified site; F17.210 Nicotine dependence, cigarettes, uncomplicated; Z79.4 Long term (current) use of insulin; Z79.899 Other long term (current) drug therapy
CPT/HCPCS: 36415; 74177; 80048; 80053; 80074; 81001; 82948; 83690; 85025; 85610; 85730; 93005; 96360; 96361; 99285; J1815; J7030; J7120; Q9967